=== PATIENT | female | born 1960 | race Caucasian/White ===

== ENCOUNTER → 2019-10-08 11:30 | Outpatient (BNVA) | payer SELFPAY | PROVIDERS: Family Provider Family Medicine; PCP Family Medicine; Visit Provider Surgery | DX: R10.9 Unspecified abdominal pain (principal); B19.20 Unspecified viral hepatitis C without hepatic coma | CPT/HCPCS: 80053; 85025; 85610 ==

== ENCOUNTER 2019-10-16 07:28 | Outpatient (CLI) | payer SELFPAY ==
--- NOTE | 2019-10-16 08:00 | US_ITS ---
WS: [id number] ULTRASOUND ABDOMEN LIMITED CLINICAL INFORMATION: abdominal pain COMPARISON: None. FINDINGS: Liver Size: Enlarged Craniocaudal length: 18.0 cm. Echogenicity: Normal. Surface nodularity: None. Mass (size and location): None. Bile ducts Intrahepatic ducts: Normal. Common bile duct diameter: 4.3 mm. Gallbladder Cholelithiasis Gallstones: Present Gallbladder sludge: None. Gallbladder wall thickening: None. Pericholecystic fluid: None. Sonographic Chong sign: Absent. Pancreas Normal as visualized. Right kidney: Normal. Hydronephrosis: None. Size: 10.1 cm x 3.7 cm x 4.0 cm. Abdominal aorta and IVC Visualized portions are normal. Ascites: None. US/US gall bladder 49903 IMPRESSION: 1. Hepatomegaly. 2. Cholelithiasis. No gallbladder wall thickening or pericholecystic fluid. 3. Normal common bile duct. 4. No hydronephrosis in right kidney.
== END 2019-10-16 07:29 | disposition home or self-care (01) ==
LOC: US 07:28
PROVIDERS: Family Provider Family Medicine; PCP Family Medicine; Visit Provider Surgery
DX: R10.9 Unspecified abdominal pain (principal); R16.0 Hepatomegaly, not elsewhere classified; K80.20 Calculus of gallbladder without cholecystitis without obstruction
CPT/HCPCS: 76705

== ENCOUNTER → 2019-11-29 09:01 | Outpatient (BNVA) | payer OTHER, SELFPAY | PROVIDERS: Family Provider Family Medicine; PCP Family Medicine; Visit Provider Surgery | DX: Z11.59 Encounter for screening for other viral diseases (principal); K80.20 Calculus of gallbladder without cholecystitis without obstruction | CPT/HCPCS: 87635 ==

== ENCOUNTER 2019-12-04 05:54 | Day surgery (SDC) | payer SELFPAY ==
[2019-12-03 13:37] VITALS: BMI 27.8
[2019-12-04] VITALS (12 sets, daily range): BP systolic 123–183; BP diastolic 78–106; PULSE 57–100; RESP 14–26; TEMP 36.1–37.3; O2SAT 88–100
--- NOTE | 2019-12-04 06:24 | W.PM.OPSUD ---
Surgery/Procedure H&P Update DATE OF PROCEDURE: December 04, 2019 DATE H&P PERFORMED: 11/15/19 H&P UPDATE INFORMATION: I have reviewed H&P completed within last 30 days, I have examined patient prior to procedure and Changes to prior documentation as noted here CHANGES TO PREVIOUS DOCUMENTATION: Patient reports that she lost 18 pounds since she was started on liquid protein diet PREOP DIAGNOSIS: Symptomatic cholelithiasis PRIMARY INDICATION FOR PROCEDURE: The same PLANNED PROCEDURE: Operation Date: 12/04/19 07:30 Proposed Procedures p Laparoscopic Cholecystectomy 68018 CHOLELITHIASIS K80.20(Not Applicable) - Lorenzo Draper MD
--- NOTE | 2019-12-04 06:40 | ANES.PREANE2 ---
Pre-Anesthetic Assessment Pre-Anesthetic Assessment: Height/Weight: Height 1.65 m Weight 75.75 kg Temp Pulse Resp BP Pulse Ox 97.6 F 63 18 134/86 96 12/04/19 06:12 12/04/19 06:12 12/04/19 06:12 12/04/19 06:12 12/04/19 06:12 Preop Diagnosis: Symptomatic cholelithiasis Proposed Procedure: Operation Date: 12/04/19 07:30 Proposed Procedures p Laparoscopic Cholecystectomy 50874 CHOLELITHIASIS K80.20(Not Applicable) - Lorenzo Draper MD Familial anesthetic complications: None Was Beta Cezar taken within 24 hours: N/A Last intake: Intake Last Liquid Date 12/03/19 Last Liquid Time 11:30 Last Solid Date 11/15/19 Last Solid Time 12:00 Social: Social History: Tobacco and No alcohol Exam: Pre-Anes Outpt Exam: alert, oriented x 3, clear to auscultation bilaterally and regular rate & rhythm Airway: Cervical ROM: WNL MP: 3 Dentition: Other (edentulous) Pulmonary: Pulmonary: COPD and WELLS Comments: > 4 METS achievable Hepatic: Hepatic: Hepatitis Comments: fatty liver, hepa titis C Anesthetic Plan: ASA status: 2 Anesthesia: General Risk of > 500 ml blood loss (7ml/kg in children): No PFSH Anesthesia PFSH: Medical History Abdominal pain Anxiety Depression Hepatitis C Hypertension Family History Denies family history of Anesthesia complication Bleeding disorder Social History Smoking and tobacco status: current every day smoker Second hand smoke exposure: Yes Alcohol intake: current Adopted: No Caregiver/support person: No Lives independently: Yes Household members: family Housing: House Data Anesthesia Cardiac Studies: No Data to Display
[2019-12-04] MEDS: sodium chloride 0.9% 1,000 ML 30 ML IV (06:56)
--- NOTE | 2019-12-04 08:23 | SUR.OPER ---
0815 - Pt's sister Inna notified of surgery start via her cell phone.
[2019-12-04] MEDS: lidocaine 2% INJ 20 mL INJECTION (08:29)
--- NOTE | 2019-12-04 08:57 | PM.OP ---
Operative Report Date of procedure: December 04, 2019 Pre-op Diagnosis: Symptomatic cholelithiasis Post-op diagnosis: other (Chronic calculus cholecystitis) Procedure Done: Laparoscopic cholecystectomy Specimens removed/disposition: Gallbladder and contents Surgeon: Lorenzo Draper Corporate Relations Director: Surgical vic Pena Circulating nurse Danay Anesthesia: General (supply chain coordinator Rhett) Estimated blood loss (mL): 10 Condition: stable Disposition: same day Brief History: Plan of care; After thorough history physical examination and reviewing the chart ,I counseled the patient for laparoscopic cholecystectomy possible open, indications risks including but not limited injury to the common bile duct and other viscera.benefits and alternatives all discussed with the patient, and she did agree to proceed. All questions have been answered and all concerns have been addressed to patient's satisfaction. Rationale was carefully and clearly discussed with the patient.Appropriate informed consent have been reviewed and signed. Procedure: Patient was identified in the holding area and taken back to the operative suite, placed in supine position intubated by anesthesia . Time-out was done verifying the patient's name/date of /planned procedure and destination after the procedure, all were in agreement. SCDs confirmed to be functioning, preoperative antibiotics administered per protocol, and beta maura protocol was confirmed. Patient was appropriately secured to the table, footboard was applied to the OR table, before prep and drape anesthesia was asked to tilt the table back and forth to make sure that the patient is appropriately secured and she was. Prep and drape of the abdomen was done under the usual sterile technique, followed by that supraumbilical skin incision,skin incision was done by a 15 blade knife, and stay sutures were applied to the fascia and Adams trocar technique was used to enter the abdominal without injuring any abdominal viscera, started by low flow gas insufflation followed by a high flow, started with a 10 mm laparoscope and under direct vision there was no evidence of any injuries, the scope then switched to a 30? ,10 millimeter scope and under direct visualization, followed by two 5 mm trocars were inserted in the right upper quadrant that was done after injection of local lidocaine 2% at all incision sites. Patient was noticed to have some adhesions towards the midline in the upper part, I elected to place the right upper 5 mm trochars first and under direct visualization I used the LigaSure device to take the adhesions down safely. Following that an epigastric 5 mm trocar was inserted under direct vision Gallbladder showed chronic calculus cholecystitis with overall normal appearance of the liver except for mild fatty component Patient was then positioned in the head up and tilted to the left Ratcheted forceps were introduced into the lateral most 5mm port and was applied unto the fundus of the gallbladder cephalad and using Bullet forceps the infundibulum of the gallbladder was retracted laterally. Using [place] forceps then L-hook cautery to dissect the peritoneum overlying the Calot's triangle whihc was then opened medially and laterally until the cystic duct and the cystic artery were skeletonized. Dissection was carried along the body of the gallbladder and after ensuring critical view of safety was identfied. Cystic duct and cystic artery where seen connected to the gallbladder. Clips were applied on the cystic duct towards the common bile duct 1 towards the gallbladder then divided is in sharp scissors, 2 clips were then applied onto the cystic artery and 1 towards the gallbladder and divided by sharp scissors. Additional clip was applied for a traversing vessel Dissection was then carried along of the gallbladder from the gallbladder fossa using cautery as well as sharp dissection with heat energy. The gallbladder then was dissected out from the gallbladder fossa totally , cholecystectomy was then achieved and was placed in an Endo Catch bag and then retrieved from the Adams trocar site under direct visualization using a 5 mm 30? scope through the epigastric trocar, specimen was then passed to the circulating nurse to go for permanent pathology,irrigation and hemostasis was done to the gallbladder fossa after hemostasis was secured, final survey laparoscopy was done that showed no injuries. suction irrigation was obtained The supraumbilical fascial defect was then closed using interrupted Vicryl sutures using a fascial closure device ;Gary Rios under direct visualization Gas was allowed to deflate,Trocars were then taken out under direct vision there was no evidence of bleeding Specimen was passed to the circulating nurse for permanent pathology. No drains were placed and the supraumbilical incision as well as all trocar sites were closed by by 4-0 Monocryl to approximate the skin edges of the supraumbilical incision, dressing was applied in the form of Dermabond and the patient patient got extubated and was taken to recovery area in a stable condition. Count of sponges, needles and instruments were completed at the end of the procedure I was present for the whole entire procedure.
--- NOTE | 2019-12-04 09:14 | SUR.PHASEI ---
0910 PATIENT TO PACU FROM OR. 4 INCISIONS TO ABDOMEN, CDI. SPO2 99% ON SIMPLE MASK AT 8L.
--- NOTE | 2019-12-04 09:34 | SUR.PHASEI ---
0931 PATIENT TO OPS. DENIES NAUSEA. 4 INCISIONS TO ABDOMEN, CDI.
[2019-12-04] MEDS: HYDROcodone-acetaminophen 5-325 mg Tablet 1 TAB PO (10:14)
--- NOTE | 2019-12-04 10:45 | ANE.PACU2 ---
Inpatient post-anesthesia follow up: Airway intact: Yes Vital signs: Temperature 97 F Pulse Rate 72 Respiratory Rate 18 Blood Pressure 124/78 Pulse Oximetry 92 Oxygen Delivery Me thod Room Air Oxygen Flow Rate 3 Fraction of Inspir ed Oxygen Hydration adequate: Yes Nausea and vomiting: No Pain level: 1 Mental status: Baseline Additional Comments: Patient discharged home with responsible adult, satting low 90s, but pt asymptomatic and no SOB, CTA. Hx copd. Educated patient and guarding to return to ER for any difficulties with breathign.
--- NOTE | 2019-12-04 12:06 | PC.NURSE ---
1140 PT EVALUATED BY ANESTHESIOLGIST, DR MURPHY REGARDING OXYGEN SATURATIONS. PT STATED HAS COPD AND SISTER WOULD BE STAYING OVERNIGHT WITH HER. PT REQUESTED TO GO HOME. PT TALKING AND VISITING WITH SISTER. S/S EXPLAINED BY DR MURPHY ON WHEN PT WOULD NEED TO GO TO THE ER IF BREATHING PROBLEMS OCCURED.
== END 2019-12-04 11:45 | disposition home or self-care (01) ==
PROVIDERS: Family Provider Family Medicine; PCP Family Medicine; Visit Provider Surgery
PROC: 0FT44ZZ Resection of Gallbladder, Percutaneous Endoscopic Approach (ICD-10-PCS; CPT 47562; principal; 2019-12-04 07:30)
DX: K80.10 Calculus of gallbladder with chronic cholecystitis without obstruction (principal); J44.9 Chronic obstructive pulmonary disease, unspecified; B19.20 Unspecified viral hepatitis C without hepatic coma; F41.9 Anxiety disorder, unspecified; F32.9 Major depressive disorder, single episode, unspecified; I10 Essential (primary) hypertension; F17.210 Nicotine dependence, cigarettes, uncomplicated
CPT/HCPCS: 47562; 12345; 88304; 96365; J0131; J0690; J2405; J2704; J2710; J3010; J3490; J7030